=== PATIENT | female | born 1935 | race Caucasian/White ===

== ENCOUNTER 2018-09-27 08:29 | Outpatient (CLI) | payer MEDICARE ==
[2018-09-27 08:54] LABS: INR-International Normal Ratio 1.2; PTT 34.7 SEC (22.9-36.1); Prothrombin Time 14.9 SEC (12.0-14.7)
[2018-09-27 08:55] LABS: #Basophils 0.1 thou/uL (0.0-0.2); #Eosinphils 0.1 thou/uL (0.0-0.7); #Lymphocytes 2.3 thou/uL (1.20-3.40); #Monocytes 0.5 thou/uL (0.11-0.59); #Neutrophils 4.3 thou/uL (1.40-6.50); %Eosinophils 1.3 % (0.0-10.0); %Lymphocytes 31.9 % (21.0-51.0); %Monocytes 7.1 % (0.0-10.0); %Neutrophils 58.8 % (42.0-75.0); Hemoglobin 13.2 g/dL (12.0-16.0); Mean Corpuscular HGB CONC 32.7 g/dL (32.0-36.0); Mean Corpuscular Hemoglobin 29.6 pg (27.0-31.0); Mean Corpuscular Volume 90.3 fL (78.0-98.0); Mean Platelet Volume 7.1 fL (7.4-10.4); Platelet Count 330 thou/uL (130-400); RBC Distribution Width 12.5 % (11.5-14.5); Red Blood Cell (RBC) Count 4.46 mill/uL (4.20-5.40); White Blood Cell (WBC) Count 7.3 thou/uL (4.8-10.8)
[2018-09-27 09:13] LABS: Anion Gap 12 mmol/L (10-20); BUN (Urea Nitrogen) 11 mg/dL (9.8-20.1); Calc. Creatinine Clearance 0 mL/min (70-130); Carbon Dioxide 27 mmol/L (23-31); Chloride 100 mmol/L (98-107); Estimated GFR-MDRD 88; Glucose 77 mg/dL (83-110); Potassium 3.9 mmol/L (3.5-5.1); Sodium 135 mmol/L (136-145)
== END 2018-09-27 08:30 | disposition home or self-care (01) ==
LOC: LABBT 08:29
PROVIDERS: ATTEND Orthopaedic Surgery
DX: Z01.818 Encounter for other preprocedural examination (principal); M17.12 Unilateral primary osteoarthritis, left knee; M16.12 Unilateral primary osteoarthritis, left hip
CPT/HCPCS: 80048; 85025; 85610; 85730

== ENCOUNTER 2018-10-03 10:27 | Outpatient (CLI) | payer MEDICARE | END 2018-10-03 10:28 | disposition home or self-care (01) | LOC: LABBT 10:27 | PROVIDERS: ATTEND Orthopaedic Surgery | DX: Z01.812 Encounter for preprocedural laboratory examination (principal); M17.12 Unilateral primary osteoarthritis, left knee; M16.12 Unilateral primary osteoarthritis, left hip | CPT/HCPCS: 86850; 86900; 86901; 87081 ==

== ENCOUNTER 2018-10-08 07:45 | Inpatient (IN) | payer MEDICARE ==
[2018-09-27 08:41] VITALS: BMI 25.0
[2018-10-08] MEDS ORDERED: Fentanyl 100 MCG/2 ML VIAL ONE ×3 (08:38→12:55)
[2018-10-08] MEDS ORDERED: Midazolam HCl 2 mg/2 ml Vial ONE (08:38)
[2018-10-08] MEDS ORDERED: Tranexamic Acid 1,000 MG/10 ML VIAL ONE ×2 (08:40→13:06)
[2018-10-08] MEDS ORDERED: CEFAZOLIN 2 GM/50 ML BAG ONE (08:40)
[2018-10-08] MEDS ORDERED: Sodium Chloride 0.9% 100 ML ONE (08:40)
[2018-10-08] MEDS ORDERED: Ondansetron PF 4 MG/2 ML Vial IVP PRN ×2 (08:54→10:20)
[2018-10-08] MEDS ORDERED: Promethazine HCl 25 MG/ML VIAL IM PRN ×3 (08:54→12:16)
[2018-10-08] MEDS ORDERED: Ropivacaine HCl/PF 250 ML in Premix Bag 1 BAG NERVE BLCK SCH (08:54)
[2018-10-08] MEDS ORDERED: Zolpidem Tartrate 5 MG TAB PO PRN (08:54)
[2018-10-08] MEDS ORDERED: traMADol HCl 50 MG TAB PO PRN ×2 (08:54)
[2018-10-08] MEDS ORDERED: HYDROcodone/Acetaminophen 7.5/325 mg Tablet PO PRN ×2 (08:55→08:56)
[2018-10-08] MEDS ORDERED: Fentanyl 100 MCG/2 ML VIAL SLOW IVP PRN (08:55)
[2018-10-08] MEDS ORDERED: diphenhydrAMINE 25 MG CAP PO PRN (10:20)
[2018-10-08] MEDS ORDERED: Morphine 2 MG/ML SYRINGE IVP PRN (10:20)
[2018-10-08] MEDS ORDERED: HYDROcodone/Acetaminophen 10/325 mg Tablet PO PRN (10:20)
[2018-10-08] MEDS ORDERED: Acetaminophen 325 MG TAB PO PRN (10:20)
[2018-10-08] MEDS ORDERED: Tranexamic Acid 1,000 MG in Sodium Chloride 0.9% 100 ML IVPB SCH (10:30)
[2018-10-08] MEDS ORDERED: CEFAZOLIN/Water 2 GM/20 ML SYRINGE SLOW IVP SCH (10:30)
[2018-10-08] MEDS ORDERED: Bupivacaine HCl 0.5%/Epinephrine 1:200,000/PF 30 ml Vial ONE (10:41)
[2018-10-08] MEDS ORDERED: Neomycin-Polymyxin 1 ML AMP ONE (10:41)
[2018-10-08] MEDS ORDERED: Bupivacaine/Epinephrine 0.25% 30 ML VIAL ONE (10:49)
[2018-10-08] MEDS ORDERED: Apixaban 5 MG TAB PO SCH (11:45)
[2018-10-08] MEDS ORDERED: Promethazine HCl 25 MG/ML VIAL SLOW IVP PRN (12:16)
[2018-10-08] MEDS ORDERED: Ondansetron HCl/PF 4 MG/2 ML Vial IVP PRN (12:16)
[2018-10-08] MEDS ORDERED: Morphine Sulfate 2 MG/ML SYRINGE SLOW IVP PRN (12:16)
[2018-10-08] MEDS: Sodium Chloride 0.9% 1,000 ML IV SCH ×2 (16:09→21:37)
[2018-10-08] MEDS: Ketorolac Tromethamine 30 MG/ML VIAL IVP SCH ×2 (16:11→17:34)
[2018-10-08] MEDS: CEFAZOLIN 2 GM/50 ML-DEXTROSE 2 GM in Premix Bag 1 BAG IVPB SCH (17:34)
--- NOTE | 2018-10-08 19:00 | OP ---
DATE OF PROCEDURE: 10/08/2018 PREOPERATIVE DIAGNOSIS: Left knee osteoarthritis. POSTOPERATIVE DIAGNOSIS: Left knee osteoarthritis. PROCEDURE PERFORMED: Left total knee arthroplasty. ANESTHESIA: General. CABIN SERVICE AGENT: Alfred Gooden PA-C. COMPLICATIONS: None. CONDITION: Good. ESTIMATED BLOOD LOSS: Minimal. DRAINS: None. TOURNIQUET: Per Anesthesia. DESCRIPTION OF PROCEDURE: After consent was obtained, the patient was taken to the operating room and placed in supine position. After adequate general anesthesia was achieved, the patient's left knee was examined. The patient had significant valgus deformity, approximately 10 degree flexion contracture. She had flexion up to 125 degrees with good stability. The left lower extremity was then positioned, prepped and draped in the usual sterile fashion. Tourniquet was placed in the left upper thigh. The leg was elevated, exsanguinated, and tourniquet was inflated prior to incision. Standard midline and vertical incision was made. It was taken down to subcutaneous tissues, exposing extensor mechanism. Medial parapatellar arthrotomy was performed. The patella was subluxed laterally. The patient had advanced lateral compartment arthrosis with grade 4 eburnated bone. There were grade 3 and 4 changes patellofemoral medially and using intramedullary guide, distal 5-degree valgus resection on the femur was performed. Additional 2 mm resection was necessary due to deficient lateral condyle. Using AP and epicondylar axis, proper rotation, and position, the size 5 cutting block was placed. Anterior, posterior, and chamfer cuts were completed for size 5 Evolution femur. Tibia was then subluxed anteriorly using external guide appropriate. Resection was performed on the tibia. The menisci and cruciate ligaments were debrided and additional IT band release with staggered pie cut. This was without balancing of the knee in extension with 12 and 14 mm spacers at 0 and 90 degrees. The patella was then measured, approximately 6 to 7 mm resection was performed, and a 32 mm patella was medialized. The trial components were then placed. With the range of motion, the patient had full flexion and extension, good balancing through full range of the knee. Tibial baseplate was marked, prepared with the brojeff. All surfaces were irrigated and copiously dried. Femur, tibia, and patella cemented. Excess cement removed. We again trialed with a 12 and then 14 mm bearing surface. The 14 was chosen, had good stability through full range. After copious irrigation, the bearing surface was inserted and snapped fit. The arthrotomy was then closed with #2 Mersilene and #1 Vicryl, the subcu with 0 and 2-0 Vicryl, and the skin with marzena. A sterile bulky dressing was applied. The patient was taken to Recovery. PROGNOSIS: Good. PLAN: To begin rehab protocol. Job ID: [id number]
[2018-10-08] MEDS: Simvastatin 5 MG TAB PO SCH (21:35)
[2018-10-08] MEDS: Apixaban 5 MG TAB PO SCH (21:36)
[2018-10-08] MEDS: Ubidecarenone 50 MG CAP PO SCH (21:36)
[2018-10-09] MEDS: CEFAZOLIN 2 GM/50 ML-DEXTROSE 2 GM in Premix Bag 1 BAG IVPB SCH (00:03)
[2018-10-09] MEDS: Ketorolac Tromethamine 30 MG/ML VIAL IVP SCH ×4 (00:03→17:34)
--- NOTE | 2018-10-09 02:19 | CON ---
DATE OF CONSULTATION: CODE STATUS: Full. PRIMARY CARE PHYSICIAN: Channing Pablo MD ADDITIONAL ATTENDING PHYSICIAN: Shekhar Horne MD RESIDENT: Eyal Patel MD HISTORIAN: Patient. SPECIALIST: Dr. Goodman with Orthopedic Surgery. CHIEF COMPLAINT: Left leg pain. HISTORY OF PRESENT ILLNESS: This is an 83-year-old pleasant female, who underwent total left knee replacement today. Family medicine service has been consulted for further medical management. The patient has no complaint at this time. She reports that after her last surgery with Dr. Goodman, which was a right knee replacement , she developed atrial fibrillation with rapid ventricular response. She was started on anticoagulation, rate controlled at that time. Has had no issues since then. She has been off medications for quite some time and has been stable and in good health otherwise. She has no complaint now. PAST MEDICAL HISTORY: 1. Atrial fibrillation. 2. Hypokalemia. 3. Hypertension. 4. GERD. 5. Hiatal hernia. PAST SURGICAL HISTORY: 1. Tubal ligation. 2. Hysterectomy without oophorectomy. 3. Total right knee replacement in 2017. 4. Appendectomy. ALLERGIES: 1. ASPIRIN. 2. ZYRTEC. MEDICATIONS: 1. Rabeprazole 20 mg p.o. q.a.m. 2. Pravastatin 20 mg p.o. q.p.m. 3. Flonase one spray each naris p.r.n. 4. Lisinopril 10 mg p.o. q.a.m. 5. Hydrochlorothiazide 25 mg p.o. q.a.m. 6. Eliquis 5 mg p.o. b.i.d. 7. Diltiazem 240 mg p.o. q.a.m. 8. Fish oil one capsule p.o. q.a.m. 9. Calcium carbonate 600 mg p.o. q.a.m. 10. Magnesium oxide 400 mg p.o. q.a.m. 11. Biotin 10,000 mcg p.o. q.a.m. 12. Folic acid 0.8 mg p.o. q.a.m. 13. CoQ10 100 mg p.o. q.p.m. 14. Daily multivitamin 1 tablet p.o. q.a.m. FAMILY HISTORY: Hypertension. SOCIAL HISTORY: The patient denies tobacco, alcohol, or drug use. REVIEW OF SYSTEMS: GENERAL: Denies fevers or chills. Denies vision changes or eye pain. ENT: Denies nasal congestion, rhinorrhea, sore throat. RESPIRATORY: Denies cough. Denies shortness of breath. CARDIOVASCULAR: Denies chest pain. Denies palpitations. GASTROINTESTINAL: Denies nausea, vomiting, diarrhea. GENITOURINARY: Denies dysuria or hematuria. SKIN: Denies rashes or itching. MUSCULOSKELETAL: Endorses leg pain and joint pain. NEUROLOGIC: Denies weakness or numbness. PSYCHIATRIC: Denies anxiety. Denies depression. PHYSICAL EXAMINATION: VITAL SIGNS: Temperature 97.4 degrees Farenheit, pulse of 77, respirations of 20 , O2 saturation of 92% on room air, blood pressure of 155/73. GENERAL: Alert and orientated x3, in no acute distress. EYES: Pupils are equal, round, and reactive to light and accommodation. Conjunctivae within normal limits. ENT: TMs are pearly jean without bulging or erythema. Nasal mucosa NECK: Supple with no lymphadenopathy. CARDIOVASCULAR: Regular rate and rhythm with no murmurs. RESPIRATIONS: Minimal effort. Clear to auscultation bilaterally. ABDOMEN: Soft, nontender to palpation. No masses or distension felt. EXTREMITIES: Show no clubbing or cyanosis. Left leg in a brace. Surgical site is bandaged, clean, dry, and intact. NEUROLOGIC: No focal deficits. Cranial nerves 2 through 12 intact. PSYCHIATRIC: Appropriate. LABORATORY DATA AND IMAGING STUDIES: No labs or imaging on admission. ASSESSMENT AND PLAN: 1. Total left knee replacement: Postoperative day #1. Continue pain management per Orthopedic Surgery. Continue early ambulation and PT/OT. 2. Atrial fibrillation, history of rapid ventricular response. We will continue her diltiazem, and Eliquis has been restarted by the primary team. 3. Gastroesophageal reflux disease. Continue her home medications. 4. Hyperlipidemia. We will continue her home pravastatin. 5. Hypertension. We will continue her home hydrochlorothiazide and lisinopril. Vital signs remain stable at this time. DISPOSITION: Length of hospital stay, 2 plus days. Symptomatic medications will be provided. History, physical exam as well management discussed with Dr. Shekhar Horne. Attending addendum: Seen and examined and all portions of the H&P repeated. Agree with A&P as documented above. Job ID: [id number] MTDD
[2018-10-09 05:38] LABS: Hemoglobin 11.3 g/dL (12.0-16.0); Mean Corpuscular HGB CONC 33.1 g/dL (32.0-36.0); Mean Corpuscular Hemoglobin 30.2 pg (27.0-31.0); Platelet Count 290 thou/uL (130-400); RBC Distribution Width 12.4 % (11.5-14.5); Red Blood Cell (RBC) Count 3.75 mill/uL (4.20-5.40); White Blood Cell (WBC) Count 12.5 thou/uL (4.8-10.8)
--- NOTE | 2018-10-09 08:29 | PDOC.FM ---
- Subjective Subjective: AFSHAN overnight. Pt tolerating PO and doing well. Denies cp, sob, nvdc. Some gas pain, otherwise no complaints. - Objective Vital Signs & Weight: Vital Signs (12 hours) Temp Pulse Resp BP Pulse Ox 10/09/18 07:34 98.5 F 85 18 156/70 H 98 10/09/18 03:30 98.7 F 89 20 164/71 H 96 10/09/18 00:09 98.8 F 84 20 148/70 H 96 10/08/18 20:29 98.1 F 84 22 H 135/75 94 L Weight Weight 74.843 kg I&O: 10/08/18 10/09/18 10/10/18 06:59 06:59 06:59 Intake Total 651.0 120 Output Total 700 Balance -49.0 120 Result Diagrams: 10/09/18 05:04 <Neptali Valerio - Last Filed: 10/09/18 08:28> - Objective Vital Signs & Weight: Vital Signs (12 hours) Temp Pulse Resp BP BP Pulse Ox 10/09/18 08:47 156/74 H 10/09/18 08:45 85 156/70 H 10/09/18 08:00 85 L 10/09/18 07:34 98.5 F 85 18 156/70 H 98 10/09/18 03:30 98.7 F 89 20 164/71 H 96 10/09/18 00:09 98.8 F 84 20 148/70 H 96 Weight Weight 74.843 kg I&O: 10/08/18 10/09/18 10/10/18 06:59 06:59 06:59 Intake Total 651.0 120 Output Total 700 Balance -49.0 120 Result Diagrams: 10/09/18 05:04 <Shekhar Horne - Last Filed: 10/09/18 11:25> Phys Exam - Physical Examination Constitutional: NAD HEENT: PERRLA, moist MMs, sclera anicteric Neck: no nodes, no JVD Respiratory: no wheezing, no rales, no rhonchi, clear to auscultation bilateral Cardiovascular: RRR, no significant murmur, no rub Gastrointestinal: soft, non-tender, no distention, positive bowel sounds Musculoskeletal: no edema, pulses present Neurological: non-focal, normal sensation Psychiatric: normal affect, A&O x 3 Skin: cap refill <2 seconds <Neptali Valerio - Last Filed: 10/09/18 08:28> Dx/Plan (1) Knee joint replacement status Code(s): Z96.659 - PRESENCE OF UNSPECIFIED ARTIFICIAL KNEE JOINT Status: Chronic (2) Hypertension Code(s): I10 - ESSENTIAL (PRIMARY) HYPERTENSION Status: Chronic Qualifiers: Hypertension type: essential hypertension Qualified Code(s): I10 - Essential (primary) hypertension (3) Paroxysmal atrial fibrillation Code(s): I48.0 - PAROXYSMAL ATRIAL FIBRILLATION Status: Acute (4) Hyperlipidemia Code(s): E78.5 - HYPERLIPIDEMIA, UNSPECIFIED Status: Chronic (5) GERD (gastroesophageal reflux disease) Code(s): K21.9 - GASTRO-ESOPHAGEAL REFLUX DISEASE WITHOUT ESOPHAGITIS Status: Chronic - Plan Plan: 1) s/p TKR: cont pain management per ortho surg, post op day 1 2) HTN: labile pressures likley related to pain, will maintain home dose and cont to monitor 3) HLD: stable, cont home medications 4) A fib, paroxysmal: cont home medications, stable Dispo: pain management and post-surgical care per ortho, chronic conditions stable, will cont to monitor pressures. No adjustments at this time. <Neptali Valerio - Last Filed: 10/09/18 08:28> Attending Addendum - Attending Addendum Date/Time: 10/09/18 1125 I personally evaluated the patient and discussed the management with Dr. eHad and Jorge. I agree with and repeated the History, Examination, Assessment and Plan documented above with any addition or exceptions noted below. <Shekhar Horne - Last Filed: 10/09/18 11:25>
[2018-10-09] MEDS: Ferrous Gluconate 324 MG TAB PO SCH ×2 (08:42→17:35)
[2018-10-09] MEDS: Sodium Chloride 0.9% 1,000 ML IV SCH ×2 (08:42→17:43)
[2018-10-09] MEDS: Magnesium Oxide 400 MG TAB PO SCH (08:45)
[2018-10-09] MEDS: Hydrochlorothiazide 25 MG TAB PO SCH (08:45)
[2018-10-09] MEDS: Fish Oil 1,000 MG CAP PO SCH (08:47)
[2018-10-09] MEDS: Lisinopril 10 MG TAB PO SCH (08:47)
[2018-10-09] MEDS: Apixaban 5 MG TAB PO SCH ×2 (08:47→21:17)
[2018-10-09] MEDS: Multivitamin W/ Minerals 1 TAB PO SCH (08:47)
[2018-10-09] MEDS: Senokot S 8.6-50 MG TAB PO SCH ×2 (08:47→21:17)
[2018-10-09] MEDS ORDERED: Non-Formulary Item 1 EACH (Multivitamin [Daily Multiple Vitamin] 1 EACH) PO SCH (09:00)
[2018-10-09] MEDS ORDERED: Simethicone Chewable 80 MG TAB PO PRN (09:13)
[2018-10-09] MEDS: Ubidecarenone 50 MG CAP PO SCH (21:17)
[2018-10-09] MEDS: Simvastatin 5 MG TAB PO SCH (21:17)
[2018-10-10] MEDS: Ketorolac Tromethamine 30 MG/ML VIAL IVP SCH ×2 (00:50→06:52)
[2018-10-10] MEDS: Sodium Chloride 0.9% 1,000 ML IV SCH ×2 (03:38→08:47)
[2018-10-10 06:26] LABS: Hemoglobin 10.1 g/dL (12.0-16.0); Mean Corpuscular HGB CONC 33.7 g/dL (32.0-36.0); Mean Corpuscular Hemoglobin 30.5 pg (27.0-31.0); Mean Corpuscular Volume 90.3 fL (78.0-98.0); Platelet Count 244 thou/uL (130-400); RBC Distribution Width 12.3 % (11.5-14.5); Red Blood Cell (RBC) Count 3.31 mill/uL (4.20-5.40); White Blood Cell (WBC) Count 10.4 thou/uL (4.8-10.8)
[2018-10-10] MEDS: Ferrous Gluconate 324 MG TAB PO SCH (08:43)
[2018-10-10] MEDS: Hydrochlorothiazide 25 MG TAB PO SCH (08:43)
[2018-10-10] MEDS: Senokot S 8.6-50 MG TAB PO SCH (08:43)
[2018-10-10] MEDS: Fish Oil 1,000 MG CAP PO SCH (08:44)
[2018-10-10] MEDS: Multivitamin W/ Minerals 1 TAB PO SCH (08:44)
[2018-10-10] MEDS: Magnesium Oxide 400 MG TAB PO SCH (08:44)
[2018-10-10] MEDS: Apixaban 5 MG TAB PO SCH (08:44)
[2018-10-10] MEDS: Lisinopril 10 MG TAB PO SCH (08:44)
[2018-10-10] MEDS ORDERED: Calcium Carbonate 600 MG TAB PO SCH (09:00)
[2018-10-10] MEDS ORDERED: Folic Acid 1 MG TAB PO SCH (09:00)
[2018-10-10] MEDS ORDERED: BIOTIN 10000 MCG PO SCH (09:00)
--- NOTE | 2018-10-10 09:16 | PDOC.FM ---
- Subjective Subjective: AFSHAN overnight. Pt ambulating, voiding and stooling. No complaints. - Objective Vital Signs & Weight: Vital Signs (12 hours) Temp Pulse Resp BP BP Pulse Ox 10/10/18 08:44 106 H 156/74 H 10/10/18 08:06 98.7 F 106 H 16 160/69 H 93 L 10/10/18 03:45 98.7 F 97 18 160/80 H 95 10/10/18 00:01 98.7 F 94 18 155/72 H 95 Weight Admit Weight 74.843 kg Weight 74.843 kg I&O: 10/09/18 10/10/18 10/11/18 06:59 06:59 06:59 Intake Total 651.0 1021.0 960 Output Total 700 1300 3900 Balance -49.0 -279.0 -2940 Result Diagrams: 10/10/18 06:08 <Neptali Valerio - Last Filed: 10/10/18 09:13> - Objective Vital Signs & Weight: Vital Signs (12 hours) Temp Pulse Resp BP BP Pulse Ox 10/10/18 11:25 98.6 F 92 18 145/62 H 96 10/10/18 09:32 96 10/10/18 09:25 96 95 10/10/18 08:44 106 H 156/74 H 10/10/18 08:06 98.7 F 106 H 16 160/69 H 93 L Weight Admit Weight 74.843 kg Weight 74.843 kg I&O: 10/09/18 10/10/18 10/11/18 06:59 06:59 06:59 Intake Total 651.0 1021.0 1760 Output Total 700 1300 3900 Balance -49.0 -279.0 -2140 Result Diagrams: 10/10/18 06:08 <Shekhar Horne - Last Filed: 10/10/18 17:02> Phys Exam - Physical Examination Constitutional: NAD HEENT: PERRLA, moist MMs, sclera anicteric Neck: no nodes, no JVD Respiratory: no wheezing, no rales, no rhonchi, clear to auscultation bilateral Cardiovascular: RRR, no significant murmur, no rub Gastrointestinal: soft, non-tender, no distention, positive bowel sounds Musculoskeletal: pulses present Neurological: non-focal, moves all 4 limbs Skin: no rash, cap refill <2 seconds <Neptali Valerio - Last Filed: 10/10/18 09:13> Dx/Plan (1) Knee joint replacement status Code(s): Z96.659 - PRESENCE OF UNSPECIFIED ARTIFICIAL KNEE JOINT Status: Chronic (2) Hypertension Code(s): I10 - ESSENTIAL (PRIMARY) HYPERTENSION Status: Chronic Qualifiers: Hypertension type: essential hypertension Qualified Code(s): I10 - Essential (primary) hypertension (3) Paroxysmal atrial fibrillation Code(s): I48.0 - PAROXYSMAL ATRIAL FIBRILLATION Status: Acute (4) Hyperlipidemia Code(s): E78.5 - HYPERLIPIDEMIA, UNSPECIFIED Status: Chronic (5) GERD (gastroesophageal reflux disease) Code(s): K21.9 - GASTRO-ESOPHAGEAL REFLUX DISEASE WITHOUT ESOPHAGITIS Status: Chronic - Plan Plan: 1) s/p TKR: cont pain management per ortho surg, post op day 1 2) HTN: labile pressures although just slightly above goal of <150/90, cont home meds and stable for DC 3) HLD: stable, cont home medications 4) A fib, paroxysmal: cont home medications, stable - currently NSR Dispo: pain management and post-surgical care per ortho, chronic conditions stable, no medication adjustment at this time. Pt chronic medical conditions stable and ok for discharge. Will await final dispo orders per ortho. <Neptali Valerio - Last Filed: 10/10/18 09:13> Attending Addendum - Attending Addendum Date/Time: 10/10/18 1702 I personally evaluated the patient and discussed the management with Dr. Valerio. I agree with the History, Examination, Assessment and Plan documented above with any addition or exceptions noted below. <Shekhar Horne - Last Filed: 10/10/18 17:02>
[2018-10-10 13:36] VITALS: BP 145/62; TEMP 98.6
== END 2018-10-10 13:41 | disposition home or self-care (01) | DRG 470 ==
LOC: SDC 07:45 → SJJU 14:00 → SDC 16:17 → SJJU 16:20
PROVIDERS: ADMIT Orthopaedic Surgery; ATTEND Orthopaedic Surgery
PROC: 0SRD0J9 Replacement of Left Knee Joint with Synthetic Substitute, Cemented, Open Approach (ICD-10-PCS; principal; 2018-10-08)
PROC: 3E0T3BZ Introduction of Anesthetic Agent into Peripheral Nerves and Plexi, Percutaneous Approach (ICD-10-PCS; 2018-10-08)
DX: M17.12 Unilateral primary osteoarthritis, left knee (principal); Z96.651 Presence of right artificial knee joint; E87.6 Hypokalemia; I10 Essential (primary) hypertension; K21.9 Gastro-esophageal reflux disease without esophagitis; K44.9 Diaphragmatic hernia without obstruction or gangrene; Z88.6 Allergy status to analgesic agent; Z88.8 Allergy status to other drugs, medicaments and biological substances; Z79.01 Long term (current) use of anticoagulants; E78.5 Hyperlipidemia, unspecified; I48.0 Paroxysmal atrial fibrillation; E78.00 Pure hypercholesterolemia, unspecified
CPT/HCPCS: 36415; 85027; C1713; C1776; G8978-GP-CK; G8979-GP-CI; J0670; J1885; J2250; J2795; J3010; J7050

== ENCOUNTER 2019-01-17 00:11 | Outpatient (CLI) | payer MEDICARE ==
--- NOTE | 2019-01-18 16:39 | EKG ---
Test Reason : Blood Pressure : / mmHG Vent. Rate : 079 BPM Atrial Rate : 079 BPM P-R Int : 154 ms QRS Dur : 094 ms QT Int : 384 ms P-R-T Axes : 074 070 073 degrees QTc Int : 440 ms Normal sinus rhythm Cannot rule out Anterior infarct , age undetermined Abnormal ECG When compared with ECG of 21-APR-2017 01:58, T wave amplitude has decreased in Anterior leads Confirmed by DR. Tawana KARIMI ([id number]) on 01/18/2019 4:39:30 PM Referred By: ISIS Confirmed By:DR. Tawana KARIMI
== END 2019-01-17 00:12 | disposition home or self-care (01) ==
LOC: LABBT 00:11
PROVIDERS: ATTEND Orthopaedic Surgery
DX: Z01.818 Encounter for other preprocedural examination (principal); M87.052 Idiopathic aseptic necrosis of left femur
CPT/HCPCS: 87081; 93005; 93010

== ENCOUNTER 2019-01-17 08:00 | Inpatient (IN) | payer MEDICARE ==
[2019-01-29] MEDS ORDERED: Sodium Chloride 0.9% 100 ML ONE (10:26)
[2019-01-29] MEDS ORDERED: Tranexamic Acid 1,000 MG/10 ML VIAL ONE (10:26)
[2019-01-29] MEDS ORDERED: Midazolam HCl 2 mg/2 ml Vial ONE (10:51)
[2019-01-29] MEDS ORDERED: Fentanyl 100 MCG/2 ML VIAL ONE ×3 (10:52→12:10)
[2019-01-29] MEDS ORDERED: diphenhydrAMINE 25 MG CAP PO PRN (11:45)
[2019-01-29] MEDS ORDERED: Hydrocerin (Eucerin) Cream 120 gm Jar TOP PRN (11:45)
[2019-01-29] MEDS ORDERED: Zolpidem Tartrate 5 MG TAB PO PRN (11:45)
[2019-01-29] MEDS ORDERED: traMADol HCl 50 MG TAB PO PRN ×2 (11:45)
[2019-01-29] MEDS ORDERED: Promethazine HCl 25 MG SUPP PR PRN (11:45)
[2019-01-29] MEDS ORDERED: Bupivacaine 0.25% 10 ML VIAL EPIDURAL PRN (11:45)
[2019-01-29] MEDS ORDERED: HYDROcodone/Acetaminophen 5/325 mg Tablet PO PRN ×2 (11:45)
[2019-01-29] MEDS ORDERED: Naloxone HCl 0.4 mg/ml Vial IVP PRN (11:45)
[2019-01-29] MEDS ORDERED: diphenhydrAMINE 50 MG/ML VIAL IVP PRN (11:45)
[2019-01-29] MEDS ORDERED: diphenhydrAMINE 50 MG/ML VIAL IM PRN (11:45)
[2019-01-29] MEDS ORDERED: Promethazine HCl 25 MG/ML VIAL IM PRN ×2 (11:45→15:12)
[2019-01-29] MEDS ORDERED: Ketorolac Tromethamine 30 MG/ML VIAL IVP PRN (11:45)
[2019-01-29] MEDS ORDERED: Naloxone HCl 0.4 mg/ml Vial IV PRN (11:45)
[2019-01-29] MEDS ORDERED: Neomycin-Polymyxin 1 ML AMP ONE (12:07)
[2019-01-29] MEDS ORDERED: Ondansetron PF 4 MG/2 ML Vial IVP PRN (12:26)
[2019-01-29] MEDS ORDERED: Acetaminophen/Codeine 30-300mg Tablet PO PRN ×2 (12:26)
[2019-01-29] MEDS ORDERED: Acetaminophen 325 MG TAB PO PRN (12:26)
[2019-01-29] MEDS ORDERED: Acetaminophen 1,000 MG in Premix Bag 1 BAG IVPB SCH (12:30)
[2019-01-29] MEDS ORDERED: Ropivacaine 0.2% HCl/PF 20 ML ONE (12:31)
[2019-01-29] MEDS ORDERED: Metoclopramide HCl 10 MG/2 ML VIAL ONE (12:31)
[2019-01-29] MEDS ORDERED: Lidocaine 1% PF 5 ML VIAL ONE (13:19)
[2019-01-29] MEDS ORDERED: ePHEDrine 50 MG/ML VIAL ONE (13:19)
[2019-01-29] MEDS ORDERED: PROPOFOL 200 MG/20 ML VIAL ONE (13:19)
[2019-01-29] MEDS ORDERED: Succinylcholine Chloride 20 MG/ML 10 ml SYRINGE FS ONE (13:19)
[2019-01-29] MEDS ORDERED: Rocuronium Bromide 10 MG/ML (10ML VIAL) ONE (13:19)
[2019-01-29] MEDS ORDERED: Tranexamic Acid 1,000 MG in Sodium Chloride 0.9% 100 ML IVPB SCH ×2 (14:00→15:00)
--- NOTE | 2019-01-29 14:09 | RAD ---
FSingle frontal radiograph right hip: 01/29/2019 COMPARISON: None available HISTORY: Evaluate right hip during surgery FINDINGS: Coned-down portable frontal radiograph of right hip demonstrates an acetabular component wi th an associated screw. A reamer is present within the proximal right femoral shaft. Gas overlies the greater trochanter on the basis of intraoperative imaging. IMPRESSION: Intraoperative imaging as detailed above.
[2019-01-29] MEDS ORDERED: Promethazine HCl 25 MG/ML VIAL SLOW IVP PRN (15:12)
[2019-01-29] MEDS ORDERED: Ondansetron HCl/PF 4 MG/2 ML Vial IVP PRN (15:12)
[2019-01-29] MEDS ORDERED: Fentanyl 5 mcg/Bup 0.075% Cadd 100 ML EPIDURAL ONE (15:33)
--- NOTE | 2019-01-29 15:46 | RAD ---
F2-3 view left hip CLINICAL HISTORY: Postop total hip, left side FINDINGS: Left hip prosthesis is present, without hardware complication. Overlying surgical marzena a re seen. IMPRESSION: Postoperative left hip, without acute hardware complication.
[2019-01-29] MEDS ORDERED: Ketorolac Tromethamine 30 MG/ML VIAL ONE (15:52)
[2019-01-29 17:12] VITALS: BMI 25.8
[2019-01-29] MEDS: Sodium Chloride 0.9% 1,000 ML IV SCH (17:23)
[2019-01-29] MEDS: Ondansetron PF 4 MG/2 ML Vial IVP PRN (19:21)
[2019-01-29] MEDS: CEFAZOLIN 2 GM in Premix Bag 1 BAG IVPB SCH (19:21)
--- NOTE | 2019-01-29 19:37 | CON ---
DATE OF CONSULTATION: 01/29/2019 PRIMARY CARE PHYSICIAN: Channing Pablo MD. ATTENDING PHYSICIAN: Andrew Gibson MD. RESIDENT: Rachana Barajas MD, PGY-3. HISTORIAN: The patient. PRIMARY SERVICE: Orthopedic Surgery, Dr. Goodman. REASON FOR CONSULTATION: Medical management. HISTORY OF PRESENT ILLNESS: The patient is an 83-year-old female, who underwent left total hip arthroplasty earlier today. Family Medicine Service has been consulted for medical management. The patient reports some mild nausea at this time, but otherwise states that pain is currently under control. The patient is doing well at this time with no other complaints. PAST MEDICAL HISTORY: 1. Atrial fibrillation. 2. Gastroesophageal reflux disease. 3. Hiatal hernia. 4. Hypertension. 5. Hyperlipidemia. PAST SURGICAL HISTORY: 1. Tubal ligation. 2. Hysterectomy without oophorectomy. 3. Total right knee arthroplasty. 4. Total left knee arthroplasty. 5. Appendectomy. 6. Left total hip arthroplasty. ALLERGIES: 1. ASPIRIN. 2. CETIRIZINE. MEDICATIONS: 1. Rabeprazole 20 mg p.o. q.a.m. 2. Pravastatin 20 mg p.o. q.p.m. 3. Flonase 1 spray per naris p.r.n. 4. Lisinopril 10 mg p.o. q.a.m. 5. Hydrochlorothiazide 25 mg p.o. q.a.m. 6. Eliquis 5 mg p.o. b.i.d. 7. Diltiazem 240 mg p.o. q.a.m. 8. Fish oil 1 capsule p.o. q.a.m. 9. Calcium carbonate 600 mg p.o. q.a.m. 10. Magnesium oxide 400 mg p.o. q.a.m. 11. Biotin 10,000 mcg p.o. q.a.m. 12. Folic acid 0.8 mg p.o. q.a.m. 13. CoQ10 100 mg p.o. q.p.m. 14. Daily multivitamin 1 tablet p.o. q.a.m. FAMILY HISTORY: Noncontributory. SOCIAL HISTORY: The patient denies tobacco, alcohol, or drug use. REVIEW OF SYSTEMS: GENERAL: The patient denies fever or chills. EYES: The patient denies eye pain or vision changes. ENT: The patient denies nasal congestion, rhinorrhea, or sore throat. RESPIRATORY: The patient denies cough or shortness of breath. CARDIOVASCULAR: The patient denies chest pain or palpitations. GASTROINTESTINAL: The patient reports nausea, but denies abdominal pain or vomiting. SKIN: The patient denies rashes or itching. MUSCULOSKELETAL: The patient denies leg pain or joint pain. NEUROLOGIC: The patient denies weakness or numbness. PSYCHIATRIC: The patient denies depression, anxiety PHYSICAL EXAMINATION: VITAL SIGNS: Temperature 97.2, pulse 69, respirations 18, oxygen saturation 95 % on room air, blood pressure 108/56. GENERAL: The patient is alert and oriented x3. No acute distress. HEENT: Eyes; pupils are equal, round, and reactive to light. Extraocular muscles intact. No conjunctival injection. NECK: Supple. No thyromegaly. CARDIOVASCULAR: Regular rate and rhythm with no murmurs, rubs, or gallops. RESPIRATIONS: Lungs are clear to auscultation. No crackles, wheezes, or rhonchi. ABDOMEN: Soft and nontender to palpation. No masses or distention. EXTREMITIES: No peripheral edema, clubbing, or cyanosis. Bandaging over the lateral left hip. NEUROLOGIC: No focal deficits. Cranial nerves 2 through 12 intact grossly. PSYCHIATRIC: Appropriate. ASSESSMENT AND PLAN: 1. Total hip arthroplasty. The patient currently has epidural anesthesia. Pain management per Orthopedic Surgery. Physical Therapy and Occupational Therapy have been consulted as well. 2. atrial fibrillation. The patient is currently rate controlled at this time. We will continue diltiazem and Eliquis for anticoagulation. 3. Gastroesophageal reflux disease. We will continue the patient's proton pump inhibitor. 4. Hyperlipidemia. We will continue the patient's cholesterol medication. 5. Hypertension. Hydrochlorothiazide and lisinopril have been restarted. We will continue to monitor the patient's vitals, currently stable. DISPOSITION: Stable. History and physical exam as well as management discussed with Dr. Andrew Gibson. Job ID: [id number] MTDD
[2019-01-29] MEDS: Ferrous Gluconate 324 MG TAB PO SCH (20:12)
[2019-01-29] MEDS: Senokot S 8.6-50 MG TAB PO SCH (20:12)
[2019-01-29] MEDS: Simvastatin 5 MG TAB PO SCH (20:15)
--- NOTE | 2019-01-29 23:58 | OP ---
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 PROCEDURES PERFORMED: 1. Left total hip arthroplasty. 2. Repair of hip abductor tendon. ANESTHESIA: General. COMPETITIVE INTELLIGENCE MANAGER: Alfred Gooden PA-C COMPLICATIONS: None. CONDITION: Good. ESTIMATED BLOOD LOSS: 300 mL. DRAINS: None. TOURNIQUET: None. TECHNIQUE: Simple stain. DESCRIPTION OF PROCEDURE: The patient was taken to the operating room and placed in supine position. After adequate general anesthesia had been achieved, the patient's left hip was examined. The patient had minimal limitation of the motion and minimal swelling. She was then positioned on the right lateral decubitus position with axillary roll and hip positioner. Left hip and lower extremity were then positioned and prepped and draped in usual sterile fashion. A limited posterolateral approach was performed. This was taken down through subcutaneous tissues exposing the gluteal fascia. This was split longitudinally exposing the abductor musculature. There was severe abnormality of the abductor insertion with delamination and partial thickness tear. Approximately 50% of the medius and minimus insertion area had been avulsed. The remaining tendon fibers were sparse and atrophic. The proximal musculature also was mildly retracted. The piriformis was released from its insertion. Posterior capsular incision was made and the hip dislocated without complication. Femoral head was resected to appropriate level. There were gross abnormality and vascular changes in the weightbearing area with large amount of clear joint fluid. The femur was then prepared with sequential hand reamers and broaches up to a size 6. A size [address] The acetabulum was then exposed. Labral tissue was debrided. Sequential reaming was started using the PATH accessory portal with 49 mm, which was taken up to 54 mm, and 54-mm Dynasty shell was inserted in the appropriate version in flexion and abduction. A single superior screw was placed, and good stable fixation was achieved. A 15-degree trial liner was placed short neck and 38 mm medium head, put through range of motion. The patient had excellent flexion and extension. Good stability and leg lengths clinically equal. X-rays showed good position and alignment of the implant. The 15-degree liner was placed posterior superior and impacted. The size 6 Zweymuller stem was inserted with short neck and again, a 38-mm medium head was inserted. This was reduced and the posterior capsule and piriformis were repaired with some #2 Mersilene. The abductor musculature was then mobilized and repaired back to the insertion, and osteophytes were resected. Then, the bone trochanter was prepared for repair using Arthrex FiberTape. This was placed in a Krackow-typed suture and repaired back to bone tunnels in the greater tuberosity. These were done with trocar needles, and good advancement of the tendon was obtained. It was irrigated, and the gluteal fascia and IT band were closed with #2 Mersilene and #1 Vicryl, subcu with 0 and 2-0 Vicryl, and skin with marzena. Sterile bulky dressing was applied, and the patient was taken to Recovery in stable condition. Prognosis is fair due to the patient's significant abductor pathology. Job ID: [id number]
[2019-01-30] MEDS: CEFAZOLIN 2 GM in Premix Bag 1 BAG IVPB SCH (03:24)
[2019-01-30] MEDS: Sodium Chloride 0.9% 1,000 ML IV SCH ×3 (03:28→11:05)
[2019-01-30 05:05] LABS: Hemoglobin 11.1 g/dL (12.0-16.0); Mean Corpuscular HGB CONC 33.3 g/dL (32.0-36.0); Mean Corpuscular Hemoglobin 29.9 pg (27.0-31.0); Mean Corpuscular Volume 89.9 fL (78.0-98.0); Mean Platelet Volume 7.3 fL (7.4-10.4); Platelet Count 229 thou/uL (130-400); Red Blood Cell (RBC) Count 3.71 mill/uL (4.20-5.40); White Blood Cell (WBC) Count 11.9 thou/uL (4.8-10.8)
[2019-01-30] MEDS: Fentanyl 5 mcg/Bup 0.075% Cadd 100 ML EPIDURAL SCH ×2 (07:06→23:23)
--- NOTE | 2019-01-30 07:32 | PDOC.FM ---
- Subjective Subjective: This morning patient states that she is feeling well. She says her pain is 1/10 while she is sitting in the chair. Denies sob or cp. No N/V/D. Is looking foward to ambulating today. - Objective Vital Signs & Weight: Vital Signs (12 hours) Temp Pulse Resp BP Pulse Ox 01/30/19 03:28 98 F 77 16 137/66 95 01/30/19 00:16 97.7 F 77 20 126/69 95 01/29/19 20:00 97.4 F L 73 20 118/55 L 94 L Weight Weight 74.843 kg I&O: 01/29/19 01/30/19 01/31/19 06:59 06:59 06:59 Intake Total 800 Output Total 675 Balance 125 Result Diagrams: 01/30/19 04:47 Phys Exam - Physical Examination Constitutional: NAD HEENT: moist MMs, sclera anicteric Respiratory: no wheezing, clear to auscultation bilateral Cardiovascular: no significant murmur, no rub irregularly irregular Gastrointestinal: soft, non-tender, no distention, positive bowel sounds Musculoskeletal: no edema, pulses present Neurological: non-focal, moves all 4 limbs Psychiatric: normal affect, A&O x 3 Skin: no rash, cap refill <2 seconds Dx/Plan (1) Paroxysmal atrial fibrillation Code(s): I48.0 - PAROXYSMAL ATRIAL FIBRILLATION Status: Acute (2) Hyperlipidemia Code(s): E78.5 - HYPERLIPIDEMIA, UNSPECIFIED Status: Chronic (3) Hypertension Code(s): I10 - ESSENTIAL (PRIMARY) HYPERTENSION Status: Chronic Qualifiers: Hypertension type: essential hypertension Qualified Code(s): I10 - Essential (primary) hypertension (4) Aftercare following surgery of the musculoskeletal system Code(s): Z47.89 - ENCOUNTER FOR OTHER ORTHOPEDIC AFTERCARE Status: Resolved - Plan Plan: # POD 1 - pain well-controlled, PRNs ordered - PT/OT consulted # paroxysmal A fib, rate-controlled - home diltiazem, eliquis # htn -home meds # HLD - statin Diet: regular Dispo: 1-2 days Addendum - Attending - Attending Attestation Date/Time: 01/30/19 1242 I personally evaluated the patient and discussed the management with Dr. Hair. I agree with the History, Examination, Assessment and Plan documented above with any addition or exceptions noted below. The patient was experiencing some nausea this morning. She has had zofran which hasn't helped. This is likely from her pain meds. Will try some reglan as needed.
[2019-01-30] MEDS: Ondansetron PF 4 MG/2 ML Vial IVP PRN (07:49)
[2019-01-30] MEDS: Senokot S 8.6-50 MG TAB PO SCH ×2 (08:34→21:24)
[2019-01-30] MEDS: Lisinopril 10 MG TAB PO SCH (08:42)
[2019-01-30] MEDS: Hydrochlorothiazide 25 MG TAB PO SCH (08:42)
[2019-01-30] MEDS: Multivitamin W/ Minerals 1 TAB PO SCH ×2 (08:43→11:55)
[2019-01-30] MEDS: Ferrous Gluconate 324 MG TAB PO SCH ×3 (08:43→21:24)
[2019-01-30] MEDS: Magnesium Oxide 400 MG TAB PO SCH (08:43)
[2019-01-30] MEDS: Folic Acid 1 MG TAB PO SCH (08:45)
[2019-01-30] MEDS: Calcium Carbonate 600 MG TAB PO SCH ×2 (08:46→11:05)
[2019-01-30] MEDS ORDERED: Apixaban 5 MG TAB PO SCH (09:00)
[2019-01-30] MEDS ORDERED: Non-Formulary Item 1 EACH (Biotin [Mega Biotin] 10,000 MCG) PO SCH (09:00)
[2019-01-30] MEDS ORDERED: Non-Formulary Item 1 EACH (Multivitamin [Daily Multiple Vitamin] 1 EACH) PO SCH (09:00)
[2019-01-30] MEDS ORDERED: Enoxaparin Sodium 30 MG/0.3 ML SYRINGE SC SCH (09:00)
[2019-01-30] MEDS: Enoxaparin Sodium 30 MG/0.3 ML SYRINGE SC SCH (16:19)
[2019-01-30] MEDS: Simvastatin 5 MG TAB PO SCH (21:24)
[2019-01-31 06:18] LABS: Hemoglobin 10.3 g/dL (12.0-16.0); Mean Corpuscular HGB CONC 32.5 g/dL (32.0-36.0); Mean Corpuscular Hemoglobin 28.9 pg (27.0-31.0); Mean Platelet Volume 7.5 fL (7.4-10.4); Platelet Count 227 thou/uL (130-400); RBC Distribution Width 13.2 % (11.5-14.5); Red Blood Cell (RBC) Count 3.57 mill/uL (4.20-5.40); White Blood Cell (WBC) Count 13.4 thou/uL (4.8-10.8)
--- NOTE | 2019-01-31 07:11 | PDOC.FM ---
- Subjective Subjective: This morning patient states she is feeling well overall. She states her hip pain is minimal while resting, 2-3 while walking, improved from before surgery. Nausea is improved. No CP, sob, or cough. - Objective Vital Signs & Weight: Vital Signs (12 hours) Temp Pulse Resp BP Pulse Ox 01/31/19 04:17 98.8 F 93 16 114/57 L 91 L 01/30/19 23:47 98.7 F 82 16 96/60 92 L 01/30/19 20:32 97.7 F 89 16 135/76 92 L Weight Admit Weight 74.843 kg Weight 74.843 kg I&O: 01/30/19 01/31/19 02/01/19 06:59 06:59 06:59 Intake Total 800 400 Output Total 675 750 Balance 125 -350 Result Diagrams: 01/31/19 05:37 01/31/19 14:14 Phys Exam - Physical Examination Constitutional: NAD HEENT: moist MMs Neck: no nodes Respiratory: no wheezing, clear to auscultation bilateral Cardiovascular: RRR, no significant murmur, no rub Gastrointestinal: soft, non-tender, no distention, positive bowel sounds Musculoskeletal: no edema, pulses present Neurological: non-focal, moves all 4 limbs Psychiatric: normal affect, A&O x 3 Skin: no rash, cap refill <2 seconds Dx/Plan (1) Paroxysmal atrial fibrillation Code(s): I48.0 - PAROXYSMAL ATRIAL FIBRILLATION Status: Acute (2) Hyperlipidemia Code(s): E78.5 - HYPERLIPIDEMIA, UNSPECIFIED Status: Chronic (3) Hypertension Code(s): I10 - ESSENTIAL (PRIMARY) HYPERTENSION Status: Chronic Qualifiers: Hypertension type: essential hypertension Qualified Code(s): I10 - Essential (primary) hypertension (4) Aftercare following surgery of the musculoskeletal system Code(s): Z47.89 - ENCOUNTER FOR OTHER ORTHOPEDIC AFTERCARE Status: Resolved - Plan Plan: # POD 2 - pain well-controlled, PRNs ordered - PT/OT consulted # paroxysmal A fib, rate-controlled - home diltiazem, eliquis # htn -home meds # HLD - statin Diet: regular Dispo: anticipate d/c today, medicine team will sign off, please feel free to page if we can be of any help, sent home mayurfran for patient Addendum - Attending - Attending Attestation Date/Time: 01/31/19 5204 I personally evaluated the patient and discussed the management with Dr. Hair. I agree with the History, Examination, Assessment and Plan documented above with any addition or exceptions noted below. Patient is feeling well. She notes her pain is controlled and has been up walking around.
[2019-01-31] MEDS: Calcium Carbonate 600 MG TAB PO SCH (09:04)
[2019-01-31] MEDS: Ferrous Gluconate 324 MG TAB PO SCH ×2 (09:04→21:02)
[2019-01-31] MEDS: Hydrochlorothiazide 25 MG TAB PO SCH (09:05)
[2019-01-31] MEDS: Folic Acid 1 MG TAB PO SCH (09:05)
[2019-01-31] MEDS: Multivitamin W/ Minerals 1 TAB PO SCH (09:05)
[2019-01-31] MEDS: Senokot S 8.6-50 MG TAB PO SCH ×2 (09:05→21:02)
[2019-01-31] MEDS: Magnesium Oxide 400 MG TAB PO SCH (09:05)
[2019-01-31] MEDS: Lisinopril 10 MG TAB PO SCH (09:05)
[2019-01-31] MEDS: Ondansetron PF 4 MG/2 ML Vial IVP PRN (10:17)
[2019-01-31] MEDS ORDERED: Metoprolol Tartrate 5 MG/5 ML VIAL IVP PRN (13:55)
--- NOTE | 2019-01-31 14:11 | PDOC.EVN ---
Event Note - Event Note Event Note: Paged to bedside for HR of 120 Patient states she feels malaised, denies chest pain or shortness of breath Does feel palpitations She states she has felt like this before when she has had afib Hr 130, R easy no distress, BP 170/86 manual Ordered EKG shows A fib w/ RVR, ST depressio in V2-V4 ordered stat: bmp, trop, tsh, ordered cxr to give 5mg Metoprolol IV IV was removed as patient was to be discharged, will re-establish
--- NOTE | 2019-01-31 14:15 | PDOC.EVN ---
Event Note - Event Note Event Note: ST depression was present on EKG from March 2017, paged ED, will send recent EKG up
--- NOTE | 2019-01-31 14:29 | RAD ---
SINGLE VIEW OF THE CHEST: Comparison: 04-17-17 History: Atrial fibrillation with rapid ventricular response. FINDINGS: Single view of the chest shows a normal sized cardiomediastinal silhouette. There is no evidence of c onsolidation, mass, or pleural effusion. The bones are unremarkable. IMPRESSION: No evidence of acute cardiopulmonary disease. POS: TPC
[2019-01-31 14:50] LABS: Anion Gap 10 mmol/L (10-20); BUN (Urea Nitrogen) 10 mg/dL (9.8-20.1); Calc. Creatinine Clearance 80 mL/min (70-130); Calcium 9.6 mg/dL (7.8-10.44); Carbon Dioxide 31 mmol/L (23-31); Chloride 92 mmol/L (98-107); Estimated GFR-MDRD Greater than 90; Glucose 171 mg/dL (83-110); Potassium 3.4 mmol/L (3.5-5.1); Sodium 130 mmol/L (136-145)
[2019-01-31] MEDS ORDERED: Diltiazem 125 MG in Sodium Chloride 0.9% 100 ML IVPB SCH (15:45)
--- NOTE | 2019-01-31 16:11 | PDOC.EVN ---
Event Note - Event Note Event Note: Patient re-evaluated 45 min after receiving 5 mg metoprolol IV BP 140/72, P 130, still irregularly irregular Complaining of "reflux pain", denies radiation Reviewed case with on-call electrical engineer mep Will give diltiazem 15mg bolus, and start drip at 10, attempt to titrate to HR of 110 Trend trops, repeat EKG with next trop
[2019-01-31] MEDS: Enoxaparin Sodium 30 MG/0.3 ML SYRINGE SC SCH (16:21)
[2019-01-31] MEDS ORDERED: Famotidine 20 MG TAB PO PRN (17:05)
[2019-01-31] MEDS: Sodium Chloride 0.9% 1,000 ML IV SCH (17:17)
[2019-01-31 17:53] LABS: Troponin I Less than 0.010 ng/mL (< 0.028)
[2019-01-31 20:40] LABS: Troponin I Less than 0.010 ng/mL (< 0.028)
[2019-01-31] MEDS: Simvastatin 5 MG TAB PO SCH (21:02)
--- NOTE | 2019-01-31 21:31 | EKG ---
Test Reason : Blood Pressure : / mmHG Vent. Rate : 147 BPM Atrial Rate : 156 BPM P-R Int : 000 ms QRS Dur : 092 ms QT Int : 296 ms P-R-T Axes : 000 055 256 degrees QTc Int : 463 ms Atrial fibrillation with rapid ventricular response with premature ventricular or aberrantly conducte d complexes Abnormal ECG When compared with ECG of 17-JAN-2019 08:46, Atrial fibrillation has replaced Sinus rhythm Vent. rate has increased BY 68 BPM Non-specific change in ST segment in Inferior leads ST now depressed in Anterior leads T wave inversion now evident in Inferior leads T wave inversion now evident in Lateral leads Confirmed by DONNIE MYERS, DR. Tenorio (4) on 01/31/2019 9:31:11 PM Referred By: YASIR Confirmed By:DR. Coby FIELDS MD
[2019-02-01 04:59] LABS: Hemoglobin 9.6 g/dL (12.0-16.0); Mean Corpuscular HGB CONC 33.2 g/dL (32.0-36.0); Mean Corpuscular Hemoglobin 29.9 pg (27.0-31.0); Mean Corpuscular Volume 90.3 fL (78.0-98.0); Mean Platelet Volume 7.4 fL (7.4-10.4); Platelet Count 201 thou/uL (130-400); Red Blood Cell (RBC) Count 3.22 mill/uL (4.20-5.40); White Blood Cell (WBC) Count 11.2 thou/uL (4.8-10.8)
[2019-02-01 05:23] LABS: Anion Gap 8 mmol/L (10-20); BUN (Urea Nitrogen) 7 mg/dL (9.8-20.1); Calc. Creatinine Clearance 88 mL/min (70-130); Calcium 8.9 mg/dL (7.8-10.44); Carbon Dioxide 31 mmol/L (23-31); Chloride 93 mmol/L (98-107); Estimated GFR-MDRD Greater than 90; Glucose 113 mg/dL (83-110); Potassium 3.5 mmol/L (3.5-5.1); Sodium 128 mmol/L (136-145)
[2019-02-01] MEDS: Sodium Chloride 0.9% 1,000 ML IV SCH (06:18)
--- NOTE | 2019-02-01 06:35 | PDOC.FM ---
- Subjective Subjective: This morning patient states she is feeling well. She states her nausea and reflux are much improved. She denies chest pain, palpitations, or sob. - Objective Vital Signs & Weight: Vital Signs (12 hours) Temp Pulse Resp BP Pulse Ox 02/01/19 03:27 99.0 F 70 21 H 130/51 L 93 L 01/31/19 19:45 98.8 F 78 18 130/59 L 93 L Weight Admit Weight 74.843 kg Weight 74.843 kg I&O: 01/30/19 01/31/19 02/01/19 06:59 06:59 06:59 Intake Total 800 400 760 Output Total 675 750 325 Balance 125 -350 435 Result Diagrams: 02/01/19 04:34 02/01/19 04:34 Phys Exam - Physical Examination Constitutional: NAD HEENT: moist MMs, sclera anicteric Respiratory: no wheezing, clear to auscultation bilateral Cardiovascular: RRR, no rub 2/6 mumur, regular rhytnm Gastrointestinal: soft, non-tender, no distention, positive bowel sounds Musculoskeletal: no edema, pulses present Neurological: non-focal, moves all 4 limbs Psychiatric: normal affect, A&O x 3 Skin: no rash, cap refill <2 seconds Dx/Plan (1) Paroxysmal atrial fibrillation Code(s): I48.0 - PAROXYSMAL ATRIAL FIBRILLATION Status: Acute (2) Hyperlipidemia Code(s): E78.5 - HYPERLIPIDEMIA, UNSPECIFIED Status: Chronic (3) Hypertension Code(s): I10 - ESSENTIAL (PRIMARY) HYPERTENSION Status: Chronic Qualifiers: Hypertension type: essential hypertension Qualified Code(s): I10 - Essential (primary) hypertension - Plan Plan: # Paroxysmal A fib, a fib with RVR- resolved - went into RVR yesterday PM - resolved with diltiazaem, titrated dwon on drip overnight, d/c'd drip this am - trop neg x3, tsh 0.821 - home eliquis # Hyponatremia # POD 3 - pain well-controlled, PRNs ordered - PT/OT consulted # htn -home meds # HLD - statin Diet: regular Dispo: plan to d/c this this afternoon as long as she maintians regular rhythm Addendum - Attending - Attending Attestation Date/Time: 02/01/19 [id number] I personally evaluated the patient and discussed the management with Dr. Hair. I agree with the History, Examination, Assessment and Plan documented above with any addition or exceptions noted below. The patient is back in sinus rhythm after going into a.fib at discharge yesterday. She is off the diltiazem drip. She is stable for discharge and will f/u with Dr. Magana.
[2019-02-01] MEDS: Magnesium Oxide 400 MG TAB PO SCH (08:34)
[2019-02-01] MEDS: Hydrochlorothiazide 25 MG TAB PO SCH (08:34)
[2019-02-01] MEDS: Ferrous Gluconate 324 MG TAB PO SCH (08:34)
[2019-02-01] MEDS: Calcium Carbonate 600 MG TAB PO SCH (08:35)
[2019-02-01] MEDS: Senokot S 8.6-50 MG TAB PO SCH (08:35)
[2019-02-01] MEDS: Multivitamin W/ Minerals 1 TAB PO SCH (08:35)
[2019-02-01] MEDS: Lisinopril 10 MG TAB PO SCH (08:35)
[2019-02-01] MEDS ORDERED: Folic Acid 1 MG TAB PO SCH (09:00)
[2019-02-01] MEDS ORDERED: Enoxaparin Sodium 30 MG/0.3 ML SYRINGE SC SCH (09:00)
[2019-02-01 12:22] VITALS: BP 134/62
[2019-02-01 12:48] VITALS: TEMP 98.6
--- NOTE | 2019-02-01 14:38 | EKG ---
Test Reason : Blood Pressure : / mmHG Vent. Rate : 081 BPM Atrial Rate : 081 BPM P-R Int : 156 ms QRS Dur : 094 ms QT Int : 376 ms P-R-T Axes : 054 035 -07 degrees QTc Int : 436 ms Normal sinus rhythm Normal ECG When compared with ECG of 31-JAN-2019 13:54, Sinus rhythm has replaced Atrial fibrillation Vent. rate has decreased BY [address] no longer depressed in Anterolateral leads Nonspecific T wave abnormality has replaced inverted T waves in Inferior leads T wave inversion no longer evident in Lateral leads Confirmed by DONNIE MYERS, STadeo (4) on 02/01/2019 2:38:39 PM Referred By: JAREK Confirmed By:DR. Coby FIELDS MD
--- NOTE | 2019-02-01 14:50 | EKG ---
Test Reason : ROUTINE Blood Pressure : / mmHG Vent. Rate : 076 BPM Atrial Rate : 076 BPM P-R Int : 156 ms QRS Dur : 098 ms QT Int : 372 ms P-R-T Axes : 013 028 -04 degrees QTc Int : 418 ms Poor data quality, interpretation may be adversely affected Normal sinus rhythm Normal ECG When compared with ECG of 31-JAN-2019 13:54, Sinus rhythm has replaced Atrial fibrillation Vent. rate has decreased BY [address] no longer depressed in Anterior leads Nonspecific T wave abnormality has replaced inverted T waves in Inferior leads T wave inversion no longer evident in Anterolateral leads Confirmed by DONNIE MYERS, DR. Tenorio (4) on 02/01/2019 2:50:06 PM Referred By: Confirmed By:DR. Coby FIELDS MD
--- NOTE | 2019-02-01 17:22 | DIS ---
DATE OF ADMISSION: 01/29/2019 DATE OF DISCHARGE: 02/01/2019 RESIDENT: Gurjit Hair MD ADMITTING ATTENDING: Ravi Goodman MD DISCHARGE ATTENDING: Kiana Og MD CONSULTS: Orthopedics. PROCEDURE: Left total hip replacement. PRIMARY DIAGNOSIS: Left total hip replacement. SECONDARY DIAGNOSES: Atrial fibrillation with RVR, paroxysmal atrial fibrillation, hypertension, hyperlipidemia. DISCHARGE MEDICATIONS: 1. Pain management per Orthopedics. 2. Zofran 4 mg q.6 hours p.r.n. 5 days. 3. Calcium. 4. Diltiazem 240 mg daily. 5. Folic acid. 6. Hydrochlorothiazide 25 mg daily. 7. Lisinopril 10 mg daily. 8. Magnesium oxide 400 mg daily. 9. Pravastatin 20 mg at bedtime. 10. Rabeprazole 20 mg q.a.m. 11. Eliquis 5 mg p.o. b.i.d. 12. Fluticasone as needed. DISCONTINUED MEDICATIONS: None. HISTORY OF PRESENT ILLNESS/HOSPITAL COURSE: This is an 83-year-old female, who presented for a left hip replacement, which was completed on 01/29/2019. Her postoperative course was uncomplicated. She participated in physical therapy and occupational therapy, and was making goals adequately for range of motion and movement. Her pain was well controlled. On the day of discharge, the patient developed atrial fibrillation with RVR. She was given 5 mg of metoprolol and atrial fibrillation did not resolve. Therefore, she was transferred to telemetry and started on a diltiazem drip. The diltiazem drip was titrated down overnight as she had converted into a sinus rhythm. On the date of discharge, she was in sinus rhythm and she received her standard dose of p.o. diltiazem before leaving. The patient felt well upon leaving the hospital. Troponins were negative x3 throughout the night. DISPOSITION: Stable. DISCHARGE INSTRUCTIONS: 1. Location: Home. 2. Diet: Regular. 3. Activity: As tolerated. 4. Followup: Dr. Goodman on 02/12/2019 at 3:00 p.m., Dr. Pablo in 2 days, Dr. Magana in 1 to 2 weeks. Job ID: [id number]
== END 2019-02-01 12:06 | disposition home or self-care (01) | DRG 470 ==
LOC: SJJU 01-29 09:22 → SURG A 01-29 16:21 → 2NO 01-31 15:12
PROVIDERS: ADMIT Orthopaedic Surgery; ATTEND Orthopaedic Surgery
PROC: 0SRB01A Replacement of Left Hip Joint with Metal Synthetic Substitute, Uncemented, Open Approach (ICD-10-PCS; principal; 2019-01-29)
PROC: 0LQK0ZZ Repair Left Hip Tendon, Open Approach (ICD-10-PCS; 2019-01-29)
DX: M16.12 Unilateral primary osteoarthritis, left hip (principal); E87.1 Hypo-osmolality and hyponatremia; M87.852 Other osteonecrosis, left femur; I10 Essential (primary) hypertension; I48.0 Paroxysmal atrial fibrillation; E78.5 Hyperlipidemia, unspecified; K21.9 Gastro-esophageal reflux disease without esophagitis; Z96.653 Presence of artificial knee joint, bilateral; Z90.710 Acquired absence of both cervix and uterus; Z98.51 Tubal ligation status; Z90.49 Acquired absence of other specified parts of digestive tract; Z88.8 Allergy status to other drugs, medicaments and biological substances
CPT/HCPCS: 36415; 71045; 80048; 84443; 84484; 85027; 93005; 93010; C1776; J1650; J1885; J2001; J2250; J2405; J2704; J2765; J2795; J3010; J3490; J7050

== ENCOUNTER 2019-01-25 09:14 | Outpatient (CLI) | payer MEDICARE ==
[2019-01-25 09:52] LABS: Hemoglobin 12.8 g/dL (12.0-16.0); Mean Corpuscular HGB CONC 32.7 g/dL (32.0-36.0); Mean Corpuscular Hemoglobin 29.4 pg (27.0-31.0); Mean Corpuscular Volume 89.7 fL (78.0-98.0); Mean Platelet Volume 7.2 fL (7.4-10.4); Platelet Count 261 thou/uL (130-400); RBC Distribution Width 12.9 % (11.5-14.5); Red Blood Cell (RBC) Count 4.36 mill/uL (4.20-5.40); White Blood Cell (WBC) Count 6.5 thou/uL (4.8-10.8)
[2019-01-25 10:14] LABS: Anion Gap 11 mmol/L (10-20); BUN (Urea Nitrogen) 13 mg/dL (9.8-20.1); Calc. Creatinine Clearance 0 mL/min (70-130); Calcium 9.8 mg/dL (7.8-10.44); Carbon Dioxide 28 mmol/L (23-31); Chloride 100 mmol/L (98-107); Estimated GFR-MDRD 90; Glucose 98 mg/dL (83-110); Potassium 3.7 mmol/L (3.5-5.1); Sodium 135 mmol/L (136-145)
== END 2019-01-25 09:15 | disposition home or self-care (01) ==
LOC: LABBT 09:14
PROVIDERS: ATTEND Orthopaedic Surgery
DX: Z01.812 Encounter for preprocedural laboratory examination (principal); M87.052 Idiopathic aseptic necrosis of left femur
CPT/HCPCS: 80048; 85027; 86850; 86900; 86901

== ENCOUNTER 2019-08-16 10:06 | Outpatient (CLI) | payer MEDICARE ==
--- NOTE | 2019-08-16 10:48 | ULT ---
ABDOMINAL ULTRASOUND: DATE: 08/16/2019. COMPARISON: None. HISTORY: Constipation. TECHNIQUE: Multiplanar grayscale sonographic imaging of the abdomen obtained. FINDINGS: The visualized pancreas is grossly unremarkable. The tail of the pancreas is obscured by bowel gas. I kris IVC and aorta appear grossly unremarkable. Gallbladder nonvisualized, consistent with prior cholecystectomy. There is a tiny cyst within the right lobe of the liver measuring 7 mm. The insolvency practitioner reports a negative Venegas's sign. The common bile duct is dilated, measuring 1 cm, likely on the basis of prior cholecystectomy. Clinic al correlation required. Right kidney measures 9.5 cm in craniocaudal dimension. Left kidney measures 11.4 cm in craniocaudal dimension. There is a mildly complex cyst with a thin internal septation within the mid pole of the left kidney measuring 1.5 cm, as seen on prior CT examination performed 08/08/2014. The spleen measures 10.1 cm, within normal limits. IMPRESSION: No acute findings. Transcribed Date/Time: 08/16/2019 10:55 AM
== END 2019-08-16 10:07 | disposition home or self-care (01) ==
LOC: SCSULT 10:06
PROVIDERS: ATTEND Internal Medicine Gastroenterology
DX: K59.00 Constipation, unspecified (principal); M19.90 Unspecified osteoarthritis, unspecified site; R14.2 Eructation
CPT/HCPCS: 76700